=== PATIENT | male | born 1975 | race Hispanic/Latino ===

== ENCOUNTER → 2024-03-13 | Day surgery (SDC) | payer OTHER ==
[~2024-03-13] MED LIST: LACTATED RINGER'S 1,000 ML ONE
[2024-03-13 09:23] VITALS: TEMP 97.5
[2024-03-13 09:50] VITALS: BP 129/86; PULSE 85; RESP 19; O2SAT 97
== END | disposition home or self-care (01) ==
LOC: OR 06:13
PROVIDERS: ATTEND Internal Medicine Gastroenterology
DX: Z12.11 Encounter for screening for malignant neoplasm of colon (principal); D12.4 Benign neoplasm of descending colon; K57.30 Diverticulosis of large intestine without perforation or abscess without bleeding; K64.8 Other hemorrhoids; I10 Essential (primary) hypertension; R06.83 Snoring; Z78.9 Other specified health status; E66.01 Morbid (severe) obesity due to excess calories; Z01.810 Encounter for preprocedural cardiovascular examination
CPT/HCPCS: 45385; 88305; 93005; J7121; 45378